=== PATIENT | female | born 1985 | race Asian ===

== ENCOUNTER 2024-04-30 07:21 | Emergency (ER) | payer BC, SELFPAY ==
[2024-04-30] VITALS (7 sets, daily range): BP systolic 125–163; BP diastolic 68–97; BMI 37.9
--- NOTE | 2024-04-30 08:00 | ED.GENMED ---
History of Present Illness
General
Chief Complaint: Abdominal Pain
Source: patient
Exam Limitations: none
Time Seen by Provider: 04/30/24 07:37
History of Present Illness
History of Present Illness:
38-year-old female presents with ongoing intermittent epigastric abdominal pain with nausea. This has been going on several days up to a week. She also notes fatigue over the past 2 to 3 weeks with headache. No fever. She was thought to have a
sinus infection yesterday by her primary care provider and was started on Augmentin. Since doing this her abdominal pain worsened. She does have a history of GERD and she intermittently takes omeprazole for. She denies a rash or fever. She has
been moving her bowels normally. No urinary symptoms. Last menstrual cycle was 15 days ago. She recently had some blood work about 10 days ago which showed a normal TSH. No other complaints time
Past History
Past History
ED Past Medical History: HTN and Other (PCOS)
ED Past Surgical History: Gynecological
Social History
Tobacco: Non-smoker
Alcohol: None
Drug: None
Personal:
Living: with family
Employment: Employed (RN)
Phy Exam
Physical Exam
Physical Exam:
General: Well-appearing female no acute respiratory distress
HEENT: Normocephalic atraumatic
Heart: Regular rate and rhythm no murmurs
Lungs: Clear no wheeze
Abdomen is soft tender to the epigastric mild guarding no rebound tenderness
Extremities: No cyanosis or edema
Skin is warm no rash
Course
Orders/Labs/Results
Orders:
Orders
04/30/24 07:34
Electrocardiogram (*1) Urgent
Reason for Study: Abdominal Pain
EKG- Treatment ONCE
04/30/24 07:57
Ondansetron Injectable [Zofran] 4 mg IV NOW STA
US Abdomen Complete/Upper Urgent
Comment:
Reason For Exam: epigastric pain
04/30/24 08:00
Test Result ONCE
04/30/24 08:11
Complete Blood Count/With Diff Urgent
Comprehensive Metabolic Panel Urgent
HCG, Serum Qualitative Screen Urgent
Lipase Urgent
Lyme Progressive Urgent
04/30/24 09:11
Urinalysis Reflex To Culture Urgent
Date Specimen was Collected: 04/30/24
Time Specimen was Collected: 08:48
Urine Microscopic Reflex Cult Urgent
04/30/24 11:09
CT Abd/pelvis W Iv Cont Urgent
Comment:
Reason For Exam: abdominal pain
Pantoprazole [Protonix IV] 40 mg IV NOW STA
Abnormal Lab Results
04/30/24 04/30/24
08:11 09:11
Hct 36.9 L %
(37.0-47.0)
MCV 78.3 L fL
(81.0-99.0)
MCH 26.8 L pg
(27.0-31.0)
MPV 10.7 H fL
(7.4-10.4)
Absolute Monos (auto) 0.7 H 10^3/uL
(0.1-0.6)
Glucose 140 H mg/dl
(70-99)
Leukocyte Esterase Rfl Trace A
(Negative)
04/30/24 08:11
04/30/24 08:11
Vital Signs
Initial and Last Documented VS:
Initial Vital Signs
Temp Pulse Resp BP Pulse Ox
98.1 F 90 20 125/83 100
04/30/24 07:29 04/30/24 07:29 04/30/24 07:29 04/30/24 07:29 04/30/24 07:29
Last Documented Vital Signs
Temp Pulse Resp BP Pulse Ox
98.1 F 80 12 163/93 100
04/30/24 07:29 04/30/24 10:30 04/30/24 10:30 04/30/24 10:15 04/30/24 10:30
MDM/Problems Addressed
Differential Diagnosis Includes:
Fatigue with epigastric abdominal pain. Consider gastritis versus pancreatitis versus biliary colic. Patient notes fatigue for 2 to 3 weeks with achiness. Will check Lyme titer. Basic labs and lipase pending ultrasound pending.
*Critical Care Note
Total Time (30-74mins, 75-104mins- exclusive of procedures): Not Applicable
Update Note
Update Note:
Ultrasound unrevealing. Patient did continue to have discomfort. She was given Zofran initially then Protonix. Given the tenderness on exam ordered CT scan of her abdomen which is negative for other than for fatty liver. I suspect patient has
underlying gastritis. Recommend PPI daily. Recommend GI follow-up. Stable for discharge
ED Attending Note
-
Portions of this chart may have been created with voice recognition software.� Occasional wrong word or��sound alike� substitutions may have occurred due to the inherent limitations of voice recognition software.
Discharge Plan
Departure
Patient Disposition: Home (Routine Discharge)
Date of Disposition: 04/30/24
Time of Disposition: 12:50
Patient with high blood pressure during this ER visit?: No
Discharge Problem:
Abdominal pain
Instructions: Gastritis (DC)
Prescriptions:
New
pantoprazole [Protonix] 40 mg tablet,delayed release (DR/EC)
40 mg PO DAILY Qty: 30 0RF
Referrals:
Joshua Kwon MD [Active] -
Melissa Lira MD [Family Provider] -
Activity Restrictions/Additional Instructions:
Use Protonix daily. Follow-up with GI. Return worsening symptoms otherwise
Interventions
Interventions:
*Risk Screen - Suicide Last Done: 04/30/24 11:30
*General Assessment Last Done: 04/30/24 08:30
*Neglect/Abuse Screening Last Done: 04/30/24 11:30
ED- Fall Risk Assessment Last Done: 04/30/24 08:15
IZ-Jxmhxd-[place] Assessment Last Done: 04/30/24 08:15
Discharge Date and Time
Print Language: CROATIAN
[2024-04-30] MEDS: ZOFRAN 4 MG IV (08:12)
[2024-04-30 08:38] LABS: % Basophils 0.3 % (0-2); % Eosinophils 1.1 % (0-6); % Immature Granulocytes 0.4 % (0-0.5); % Monocytes 7.7 % (1.7-9.3); % Neutrophils 65.5 % (42.2-75.2); Absolute Eosinophils 0.1 10^3/uL (0-0.7); Absolute Lymphocytes 2.3 10^3/uL (1.2-3.4); Absolute Monocytes 0.7 10^3/uL (0.1-0.6); Absolute Neutrophils 5.9 10^3/uL (1.4-6.5); Hematocrit 36.9 % (37.0-47.0); Hemoglobin 12.6 g/dL (12.0-16.0); Mean Corp Hgb Conc. 34.1 g/dL (33.0-37.0); Mean Corpuscular Hgb 26.8 pg (27.0-31.0); Mean Corpuscular Volume 78.3 fL (81.0-99.0); Mean Platelet Volume 10.7 fL (7.4-10.4); Nucleated Red Blood Cells % 0 %; Platelet Count 295 10^3/uL (130-400); Red Blood Cell Count 4.71 10^6/uL (4.20-5.40); Red Cell Dist. Width 14.4 % (11.5-14.5)
[2024-04-30 08:43] LABS: HCG, Serum Qualitative Screen Negative
[2024-04-30 08:58] LABS: ALT (SGPT) 34 U/L (0-35); AST (SGOT) 27 U/L (14-36); Albumin 4.1 g/dl (3.5-5.0); Alkaline Phosphatase 91 U/L (38-126); Blood Urea Nitrogen 16 mg/dl (7-17); Calcium 9.1 mg/dl (8.4-10.2); Carbon Dioxide 26 mmol/L (22-30); Chloride 104 mmol/L (98-107); Estimated Creatinine Clearance > 125 ml/min; Glucose 140 mg/dl (70-99); Potassium 3.8 mmol/L (3.5-5.1); Sodium 137 mmol/L (135-145); Total Bilirubin 0.4 mg/dl (0.2-1.3); Total Protein 6.9 g/dl (6.3-8.2); eGFR > 60.00
[2024-04-30 09:20] LABS: Urine Albumin Negative (Neg - Trace); Urine Bilirubin Negative (Negative); Urine Character Clear (Clear); Urine Color Yellow; Urine Glucose Negative (Negative); Urine Ketone Negative (Negative); Urine Leukocyte Trace (Negative); Urine Nitrite Negative (Negative); Urine Occult Blood Negative (Negative); Urine Urobilinogen Negative (Neg - 1+); Urine pH 6.5 (5.0-9.0)
[2024-04-30 10:03] LABS: Lipase 87 U/L (23-300)
[2024-04-30 10:26] LABS: Urine Mucus Moderate; Urine Squamous Cell >30 /LPF (Few)
[2024-04-30 10:28] LABS: Urine Calcium Oxalate Crystals Seen; Urine Red Blood Cell 0-2 /HPF (0-2); Urine White Cell 0-2 /HPF (0-5)
[2024-04-30] MEDS: PROTONIX IV 40 MG IV (11:51)
[2024-05-02 11:34] LABS: Lyme Antibody Screen, EIA Negative (Negative)
== END 2024-04-30 13:16 | disposition home or self-care (01) ==
LOC: EMR 07:21
PROVIDERS: Physician Assistant; EMERGENCY PHYSICIAN Emergency Medicine; FAMILY PHYSICIAN Student in an Organized Health Care Education/Training Program
DX: R10.13 Epigastric pain (principal)
CPT/HCPCS: 99285; 96374; 96375; 74177; 76700; 80053; 81003; 81015; 83690; 84703; 85025; 86618; 93005; Q9967

== ENCOUNTER 2024-06-16 11:50 | Emergency (ER) | payer BC, SELFPAY ==
[2024-06-16 11:52] VITALS: BP 159/92
[2024-06-16 12:55] VITALS: BMI 37.1
--- NOTE | 2024-06-16 13:04 | ED.GENMED ---
History of Present Illness
General
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
Time Seen by Provider: 06/16/24 12:26
History of Present Illness
History of Present Illness:
38-year-old female with no significant past medical history presenting to the emergency department for left-sided abdominal pain. Patient reports symptoms for the past several days. Reports associated soft stools. She is currently on her
menstrual cycle, denies any abnormal vaginal discharge. Reports history of in the past, otherwise no abdominal surgeries. Denies chest pain breathing. Denies fever. Denies any vomiting, reports some nausea. Thought that she may have
strained a muscle, was doing some increased physical activity, however seen have been persisting, prompting her to come to the hospital.
Past History
Past History
ED Past Medical History: HTN and Other (PCOS)
ED Past Surgical History: Gynecological
Social History
Tobacco: Non-smoker
Alcohol: None
Drug: None
Personal:
Living: with family
Employment: Employed (RN)
Phy Exam
Physical Exam
Physical Exam:
General: Well-appearing, no clinical signs of dehydration, nontoxic and in no acute distress
HEENT: protecting airway
Neck: appears supple
CV: Normal heart rate, regular rhythm, no evidence of cyanosis
Resp: No accessory muscle use, no increased work of breathing
Abd: Soft and non-distended, generalized tenderness to the left upper and lower quadrants of the abdomen, no rebound or guarding
Extremities: No deformities, no swelling, no erythema, pulses and sensation intact
Neuro: alert, no focal neurologic deficit
: deferred
Rectal: deferred
Psych: Normal affect
Skin: Intact
Course
Orders/Labs/Results
Orders:
Orders
06/16/24 12:59
CT Abd/pelvis W Iv Cont Urgent
Comment:
Reason For Exam: L-sided pain, diarrhea
0.9% Sodium Chloride 1000 ml [Nss] 1,000 ml IV BOLUS
06/16/24 13:11
Complete Blood Count/With Diff Urgent
Comprehensive Metabolic Panel Urgent
Iron Urgent
, Urine Qualitative Screen [HCG, Urine Qualitative Screen] Urgent
Date Specimen was Collected: 06/16/24
Time Specimen was Collected: 13:31
Urinalysis Reflex To Culture Urgent
Date Specimen was Collected: 06/16/24
Time Specimen was Collected: 13:06
Urine Microscopic Reflex Cult Urgent
06/16/24 13:17
Test Result ONCE
06/16/24 13:47
Add On- LAB Urgent
Tests Added?: urine qualitative
06/16/24 16:33
Ciprofloxacin HCl [Cipro] 500 mg PO ONCE ONE
MetroNIDAZOLE [Flagyl] 500 mg PO NOW STA
Abnormal Lab Results
06/16/24
13:11
Hgb 11.9 L g/dL
(12.0-16.0)
Hct 34.7 L %
(37.0-47.0)
MCV 77.3 L fL
(81.0-99.0)
MCH 26.5 L pg
(27.0-31.0)
MPV 10.6 H fL
(7.4-10.4)
Absolute Monos (auto) 0.9 H 10^3/uL
(0.1-0.6)
Monocytes % 9.4 H %
(1.7-9.3)
BUN 18 H mg/dl
(7-17)
Glucose 113 H mg/dl
(70-99)
Ur Occult Blood Reflex 3+ A
(Negative)
Urine Bacteria (Reflex) Few A
(Negative)
06/16/24 13:11
06/16/24 13:11
Vital Signs
Initial and Last Documented VS:
Initial Vital Signs
Temp Pulse Resp BP Pulse Ox
98.2 F 77 18 159/92 100
06/16/24 11:52 06/16/24 11:52 06/16/24 11:52 06/16/24 11:52 06/16/24 11:52
Last Documented Vital Signs
Temp Pulse Resp BP Pulse Ox
98.2 F 67 18 143/73 98
06/16/24 11:52 06/16/24 14:00 06/16/24 14:00 06/16/24 14:00 06/16/24 14:00
MDM/Problems Addressed
MDM/Problems Addressed:
38-year-old female with no significant past medical history presenting for 4 days of left-sided abdominal pain and loose stools. Vital signs on arrival are normal.
On exam patient is well-appearing, nontoxic. Benign cardiac and pulmonary exam. On abdominal exam, generalized tenderness to the upper and lower quadrants of the abdomen, no rebound or guarding. In the setting of loose stools, diverticulitis is a
consideration. Patient was concern for abnormality such as ovarian pathology, however no significant tenderness to the pelvic region. Denies additional complaints. She is currently on her menstrual cycle with lower suspicion for ectopic
. Will screen with urinalysis and urine . Musculoskeletal component is also a consideration, notes symptoms were brought on by certain exercises. For additional information, will obtain laboratory analysis and CT abdominal
imaging.
16:40 -labs are unremarkable, however CT is consistent with uncomplicated diverticulitis. Patient has had reaction to Augmentin in the past. For this reason will administer Cipro and Flagyl. Otherwise feel stable for discharge with trial of oral
medications. Vies outpatient PCP follow-up. Return precaution [place] and patient verbalized understanding.
*Critical Care Note
Total Time (30-74mins, 75-104mins- exclusive of procedures): Not Applicable
ED Attending Note
-
Portions of this chart may have been created with voice recognition software.� Occasional wrong word or��sound alike� substitutions may have occurred due to the inherent limitations of voice recognition software.
Discharge Plan
Departure
Prescriptions:
No Action
pantoprazole [Protonix] 40 mg tablet,delayed release (DR/EC)
40 mg PO DAILY Qty: 30 0RF
cephalexin 500 mg capsule
500 mg PO Q8H 7 Days Qty: 21 0RF
Referrals:
Melissa Lira MD [Family Provider] -
Interventions
Interventions:
*Risk Screen - Suicide Last Done: 06/16/24 11:52
*General Assessment Last Done: 06/16/24 11:52
*Neglect/Abuse Screening Last Done: 06/16/24 11:52
ED- Fall Risk Assessment Last Done: 06/16/24 12:52
*ED COVID-19 Vaccine History Last Done: 06/16/24 12:55
ED-Female Genitourinary Assessment Last Done: 06/16/24 12:50
Discharge Date and Time
Print Language: FRISIAN
[2024-06-16] MEDS: NSS 1000 IV (13:09)
[2024-06-16 13:22] LABS: % Basophils 0.3 % (0-2); % Eosinophils 1.6 % (0-6); % Immature Granulocytes 0.3 % (0-0.5); % Lymphocytes 30.6 % (20.5-51.1); % Monocytes 9.4 % (1.7-9.3); % Neutrophils 57.8 % (42.2-75.2); Absolute Eosinophils 0.2 10^3/uL (0-0.7); Absolute Lymphocytes 2.8 10^3/uL (1.2-3.4); Absolute Monocytes 0.9 10^3/uL (0.1-0.6); Absolute Neutrophils 5.4 10^3/uL (1.4-6.5); Hematocrit 34.7 % (37.0-47.0); Hemoglobin 11.9 g/dL (12.0-16.0); Mean Corp Hgb Conc. 34.3 g/dL (33.0-37.0); Mean Corpuscular Hgb 26.5 pg (27.0-31.0); Mean Corpuscular Volume 77.3 fL (81.0-99.0); Mean Platelet Volume 10.6 fL (7.4-10.4); Nucleated Red Blood Cells % 0 %; Platelet Count 299 10^3/uL (130-400); Red Blood Cell Count 4.49 10^6/uL (4.20-5.40); Red Cell Dist. Width 13.7 % (11.5-14.5); White Blood Cell Count 9.3 10^3/uL (4.8-10.8)
[2024-06-16 13:23] LABS: Urine Albumin Negative (Neg - Trace); Urine Bilirubin Negative (Negative); Urine Character Clear (Clear); Urine Color Yellow; Urine Glucose Negative (Negative); Urine Ketone Negative (Negative); Urine Leukocyte Negative (Negative); Urine Nitrite Negative (Negative); Urine Occult Blood 3+ (Negative); Urine Urobilinogen Negative (Neg - 1+)
[2024-06-16 13:38] LABS: ALT (SGPT) 34 U/L (0-35); AST (SGOT) 26 U/L (14-36); Albumin 4.2 g/dl (3.5-5.0); Alkaline Phosphatase 81 U/L (38-126); Blood Urea Nitrogen 18 mg/dl (7-17); Calcium 9.4 mg/dl (8.4-10.2); Carbon Dioxide 27 mmol/L (22-30); Chloride 103 mmol/L (98-107); Estimated Creatinine Clearance > 125 ml/min; Glucose 113 mg/dl (70-99); Iron 38 ug/dl (37-170); Potassium 3.6 mmol/L (3.5-5.1); Sodium 140 mmol/L (135-145); Total Bilirubin 0.3 mg/dl (0.2-1.3); eGFR > 60.00
[2024-06-16 13:44] LABS: Urine Squamous Cell >30 /LPF (Few); Urine Urothelial Cell 0-2 /LPF (FEW)
[2024-06-16 13:45] LABS: Urine Bacteria Few (Negative); Urine Red Blood Cell 0-2 /HPF (0-2)
[2024-06-16 14:00] VITALS: BP 143/73
[2024-06-16 14:02] LABS: HCG, Urine Qualitative Screen Negative
[2024-06-16 16:00] VITALS: BP 138/74
[2024-06-16] MEDS: CIPRO 500 MG PO (17:13)
[2024-06-16] MEDS: FLAGYL 500 MG PO (17:13)
== END 2024-06-16 17:27 | disposition home or self-care (01) ==
LOC: EMR 11:50
PROVIDERS: EMERGENCY PHYSICIAN Student in an Organized Health Care Education/Training Program; FAMILY PHYSICIAN Student in an Organized Health Care Education/Training Program
DX: K57.92 Diverticulitis of intestine, part unspecified, without perforation or abscess without bleeding (principal); R10.9 Unspecified abdominal pain; I10 Essential (primary) hypertension; E28.2 Polycystic ovarian syndrome
CPT/HCPCS: 99284; 74177; 80053; 81003; 81015; 81025; 83540; 85025; Q9967

== ENCOUNTER 2024-12-07 10:30 | Emergency (ER) | payer BC, SELFPAY ==
[2024-12-07 10:31] VITALS: BP 161/106
[2024-12-07 11:20] VITALS: BMI 37.9
--- NOTE | 2024-12-07 11:23 | ED.GENMED ---
History of Present Illness
General
Chief Complaint: Breathing Problem
Source: patient
Time Seen by Provider: 12/07/24 11:08
History of Present Illness
History of Present Illness:
39-year-old female with past medical history of hypertension, GERD, PCOS presenting to the emergency department for evaluation of a dull aching discomfort that has been constant into the left lower extremity over the last couple of days, notes a
history of similar in the past but states that it would only last for about a day or so and then resolved but the symptoms have lasted about 3 or 4 days now. Patient also notes a discomfort into the mid to upper back and left anterior chest
accompanied with some mild shortness of breath and a sensation of needing to constantly urinate. Patient also has a secondary concern of cutting her left middle finger with a kitchen knife while making breakfast earlier this morning. Patient
states that she tried to attempt to relieve the dull aching sensation to her left lower extremity with a compression stocking but this did not help much. Patient denies any fevers or recent illnesses. No risk factors for DVT/PE other than she does
have known varicose veins to her bilateral lower extremities. No other concerns presently.
Past History
Past History
ED Past Medical History: GERD, HTN and Other (PCOS)
ED Past Surgical History: Gynecological
Social History
Tobacco: Non-smoker
Alcohol: None
Drug: None
Personal:
Living: with family
Employment: Employed (RN)
Review of Systems
Review of Systems
All Other Systems: ROS reviewed and negative except as documented in HPI and ROS
Phy Exam
Physical Exam
Physical Exam:
GENERAL: Alert , in no apparent distress
HEAD: Normocephalic atraumatic
EYE: clear conjunctiva
NECK: Supple
ENT: mmm.
CARDIAC: Regular rate and rhythm, no murmur.
LUNGS: Clear breath sounds bilaterally, no acute respiratory distress, no wheezes/rales/rhonchi
ABDOMEN: Soft, without focal tenderness, no r/g, mild bilateral back/flank tenderness
NEUROLOGICAL: Alert and oriented
SKIN: Warm and dry, skin intact. Superficial skin avulsion of the tip of the left middle finger measures less than 5 mm. Slight oozing but no active bleeding
MUSCULOSKELETAL: No edema but there is bilateral varicose veins easily palpable pedal and tibial pulses, well perfused.
PSYCH: Normal and appropriate interaction.
Scores
Heart Failure Risk
Heart Failure Risk Score: Not Applicable
Heart Score for Chest Pain Patients
STEMI patient?: No
History: Slightly or Non-Suspicious
ECG: Normal
Age: </= 45 years
Risk Factors: No Risk Factors
Troponin: </= Normal Limit
Heart Score for Chest Pain Patients: 0
Heart Score Risk: 2.5% MACE over next 6 weeks
Withdrawal Assessment of Alcohol
Withdrawal Assessment Completed?: Not applicable
Course
Orders/Labs/Results
Orders:
Orders
12/07/24 10:34
ECG [Electrocardiogram (*1)] Urgent
Reason for Study: Shortness of Breath
12/07/24 10:35
EKG- Treatment ONCE
12/07/24 11:19
Test Result ONCE
US Periph Venous LOWER Ext LT Urgent
Comment:
Reason For Exam: pain, edema
12/07/24 11:42
Urinalysis Reflex To Culture Urgent
Date Specimen was Collected: 12/07/24
Time Specimen was Collected: 11:20
Urine Microscopic Reflex Cult Urgent
Urine Culture Urgent
JOHNNY Source: U
Specimen Description:
Date Specimen was Collected: 12/07/24
Time Specimen was Collected: 11:20
12/07/24 12:27
Complete Blood Count/With Diff Urgent
Comprehensive Metabolic Panel Urgent
D-Dimer Urgent
HCG, Serum Qualitative Screen Urgent
Lipase Urgent
Troponin I Urgent
12/07/24 12:54
CR Chest - 2 Views Urgent
Comment:
Reason For Exam: chest discomfort
Abnormal Lab Results
12/07/24 12/07/24
11:42 12:27
Hct 36.6 L %
(37.0-47.0)
MCV 80.1 L fL
(81.0-99.0)
MCH 26.5 L pg
(27.0-31.0)
RDW 15.0 H %
(11.5-14.5)
BUN 19 H mg/dl
(7-17)
Glucose 131 H mg/dl
(70-99)
Ur Occult Blood Reflex 3+ A
(Negative)
Leukocyte Esterase Rfl 2+ A
(Negative)
Urine RBC 7-10 A /HPF
(0-2)
Urine Bacteria (Reflex) Moderate A
(Negative)
Urine Yeast Few A
(Negative)
Urine Albumin (Reflex) 1+ A
(Neg - Trace)
12/07/24 12:27
12/07/24 12:27
Vital Signs
Initial and Last Documented VS:
Initial Vital Signs
Temp Pulse Resp BP Pulse Ox
98.1 F 71 18 161/106 99
12/07/24 10:31 12/07/24 10:31 12/07/24 10:31 12/07/24 10:31 12/07/24 10:31
Last Documented Vital Signs
Temp Pulse Resp BP Pulse Ox
98.3 F 73 17 137/61 100
12/07/24 12:36 12/07/24 12:36 12/07/24 12:36 12/07/24 12:36 12/07/24 12:36
MDM/Problems Addressed
Differential Diagnosis Includes:
Varicose veins, peripheral vascular disease, peripheral arterial disease, DVT, PE, less concern for ACS, urinary tract infection/pyelonephritis
MDM/Problems Addressed:
39-year-old female presenting the ER for a multitude of concerns, patient's main concern is left lower leg pain/discomfort over the last few days. Symptoms seem to be most consistent with varicose veins/symptoms related to this but will check
ultrasound to rule out DVT. No symptoms of claudication. No risk factors for PE. Patient's chest/abdominal symptoms seem to be somewhat nonspecific. Will hold on further imaging pending labs. Urinalysis to be sent. Will treat middle finger
laceration with Gelfoam. Anticipate discharge home pending workup.
*Radiology
Radiology exam reviewed: preliminary read by ED provider (Normal chest x-ray) and radiology read reviewed
*Pulse Oximetry
Patient hypoxic: no
*EKG
Heart Rate: 73
Rate: normal
Rhythm: sinus
Ischemia: no ischemia
*Critical Care Note
Total Time (30-74mins, 75-104mins- exclusive of procedures): Not Applicable
Patient Management
Escalation/DeEscalation of care consider admission/obs:
Patient's workup is largely unremarkable. I did discuss patient's urine results with her and notified her that we would be sending urine for culture but at this time my suspicion for UTI is quite low. Patient will follow-up with primary care
provider. Aware of return precautions to the ER.
ED Attending Note
-
Portions of this chart may have been created with voice recognition software.� Occasional wrong word or��sound alike� substitutions may have occurred due to the inherent limitations of voice recognition software.
Discharge Plan
Departure
Patient Disposition: Home (Routine Discharge)
Date of Disposition: 12/07/24
Time of Disposition: 13:23
Patient with high blood pressure during this ER visit?: Yes
Discharge Problem:
Varicose veins of both lower extremities, Chest discomfort, Abdominal discomfort in flank
Instructions: Varicose Veins (DC)
Prescriptions:
No Action
pantoprazole [Protonix] 40 mg tablet,delayed release (DR/EC)
40 mg PO DAILY Qty: 30 0RF
cephalexin 500 mg capsule
500 mg PO Q8H 7 Days Qty: 21 0RF
ciprofloxacin HCl [Cipro] 500 mg tablet
500 mg PO BID 10 Days Qty: 20 0RF
metronidazole 500 mg tablet
500 mg PO TID 10 Days Qty: 30 0RF
Referrals:
Melissa Lira MD [Family Provider] -
Interventions
Interventions:
*Risk Screen - Suicide Last Done: 12/07/24 10:31
*General Assessment Last Done: 12/07/24 11:11
*Neglect/Abuse Screening Last Done: 12/07/24 10:31
*ED- Fall Risk Assessment Last Done: 12/07/24 11:10
*Nursing Disposition Last Done: 12/07/24 13:36
ED- Cardiac Assessment Last Done: 12/07/24 11:11
ED- Pulmonary Assessment Last Done: 12/07/24 11:13
Discharge Date and Time
Discharge Date/Time: 12/07/24 13:36
Print Language: HUNGARIAN
[2024-12-07 11:51] LABS: Urine Albumin 1+ (Neg - Trace); Urine Bilirubin Negative (Negative); Urine Character Clear (Clear); Urine Color Yellow; Urine Glucose Negative (Negative); Urine Ketone Negative (Negative); Urine Leukocyte 2+ (Negative); Urine Nitrite Negative (Negative); Urine Occult Blood 3+ (Negative); Urine Specific Gravity 1.025 (<1.030); Urine Urobilinogen Negative (Neg - 1+)
[2024-12-07 12:22] LABS: Urine Squamous Cell >30 /LPF (Few)
[2024-12-07 12:23] LABS: Urine White Cell 0-2 /HPF (0-5)
[2024-12-07 12:24] LABS: Urine Bacteria Moderate (Negative)
[2024-12-07 12:25] LABS: Urine Yeast Few (Negative)
[2024-12-07 12:36] VITALS: BP 137/61
[2024-12-07 12:43] LABS: % Basophils 0.3 % (0-2); % Eosinophils 0.5 % (0-6); % Immature Granulocytes 0.1 % (0-0.5); % Lymphocytes 27.4 % (20.5-51.1); % Monocytes 7.4 % (1.7-9.3); % Neutrophils 64.3 % (42.2-75.2); Absolute Lymphocytes 2.2 10^3/uL (1.2-3.4); Absolute Monocytes 0.6 10^3/uL (0.1-0.6); Absolute Neutrophils 5.1 10^3/uL (1.4-6.5); Hematocrit 36.6 % (37.0-47.0); Hemoglobin 12.1 g/dL (12.0-16.0); Mean Corp Hgb Conc. 33.1 g/dL (33.0-37.0); Mean Corpuscular Hgb 26.5 pg (27.0-31.0); Mean Corpuscular Volume 80.1 fL (81.0-99.0); Nucleated Red Blood Cells % 0 %; Platelet Count 281 10^3/uL (130-400); Red Blood Cell Count 4.57 10^6/uL (4.20-5.40)
[2024-12-07 12:49] LABS: HCG, Serum Qualitative Screen Negative
[2024-12-07 12:53] LABS: ALT (SGPT) 30 U/L (0-35); AST (SGOT) 22 U/L (14-36); Albumin 4.1 g/dl (3.5-5.0); Alkaline Phosphatase 84 U/L (38-126); Blood Urea Nitrogen 19 mg/dl (7-17); Calcium 9.3 mg/dl (8.4-10.2); Carbon Dioxide 30 mmol/L (22-30); Chloride 102 mmol/L (98-107); D-Dimer < 0.27 ug/mlFEU (0.00-0.50); Estimated Creatinine Clearance 117 ml/min; Glucose 131 mg/dl (70-99); Potassium 3.7 mmol/L (3.5-5.1); Sodium 138 mmol/L (135-145); Total Bilirubin 0.6 mg/dl (0.2-1.3); eGFR > 60.00
[2024-12-07 13:00] LABS: Troponin I < 0.012 ng/ml
[2024-12-07 13:44] LABS: Lipase 140 U/L (23-300)
== END 2024-12-07 13:36 | disposition home or self-care (01) ==
LOC: EMR 10:30
PROVIDERS: Physician Assistant Medical; EMERGENCY PHYSICIAN Student in an Organized Health Care Education/Training Program; FAMILY PHYSICIAN Student in an Organized Health Care Education/Training Program
DX: I83.93 Asymptomatic varicose veins of bilateral lower extremities (principal); R07.89 Other chest pain; R10.9 Unspecified abdominal pain; I10 Essential (primary) hypertension; E28.2 Polycystic ovarian syndrome
CPT/HCPCS: 99285; 71046; 80053; 81003; 81015; 83690; 84484; 84703; 85025; 85379; 87086; 93005; 93971